=== PATIENT | male | born 1935 | race Caucasian/White ===

== ENCOUNTER 2020-11-29 09:35 | Inpatient (IN) | payer OTHER ==
[2020-11-29] VITALS (29 sets, daily range): BP systolic 87–127; BP diastolic 28–66
[~2020-11-29] VITALS: Ht 175.3 cm; Wt 66.7 kg
[2020-11-29] MEDS ORDERED: SODIUM CHLORIDE 0.9% 1,000 ML IV ONE ×2 (10:00→20:15)
[2020-11-29 10:44] LABS: Hematocrit 31.9 % (41.0-53.0); Mean Corpuscular Hemoglobin 23.6 pg (28.0-32.0); Mean Corpuscular Hgb Conc. 28.3 g/dL (32.0-36.0); Mean Corpuscular Volume 83.5 fL (80.0-100.0); Red Blood Cells 3.82 10^6/uL (4.5-5.90); Red Cell Distribution Width 16.6 % (11.8-14.3); White Blood Cell 11.9 10^3/uL (4.4-10.8)
[2020-11-29 10:58] LABS: Alanine Aminotransferase 14 U/L (16-61); Anion Gap 6 (5-15); Blood Urea Nitrogen 27 mg/dL (7-18); Calcium 9.1 mg/dL (8.5-10.1); Carbon Dioxide 27 mmol/L (21-32); Chloride 106 mmol/L (98-107); Glucose 146 mg/dL (74-106); Potassium 3.8 mmol/L (3.5-5.1); Sodium 139 mmol/L (136-145)
[2020-11-29 11:03] LABS: Alkaline Phosphatase 74 U/L (45-117); Aspartate Aminotransferase 14 U/L (15-37); BUN/Creatinine Ratio 26.7; Basophils % (manual) 0 (0.0-2.0); Bilirubin, Total 0.5 mg/dL (0.2-1.0); Blast Cells 0; Eosinophils % (manual) 0 (0-7); GFR African American 91 mL/min; GFR Non-African American 75 mL/min; Metamyelocytes % 0; Myelocytes % 0; Promyelocytes % 0; Reactive Lymphocytes 0; Total Protein 7.8 g/dL (6.4-8.2)
[2020-11-29 11:37] LABS: Band Neutrophils % (manual) 2; Lymphocytes % (manual) 38 (10.0-50.0); Monocytes % (manual) 24 (0-12)
[2020-11-29] MEDS ORDERED: ACETAMINOPHEN 500 MG TAB PO ONE (15:04)
[2020-11-29] MEDS ORDERED: ACETAMINOPHEN 325 MG TAB PO ONE (15:15)
[2020-11-29 15:33] LABS: Urine Bacteria NONE SEEN /hpf (None Seen); Urine Blood 3+ /uL (Negative); Urine WBC 1250 /hpf (0 - 3)
[2020-11-29 15:39] LABS: Urine Specific Gravity 1.025 (1.001-1.035)
[2020-11-29] MEDS ORDERED: ETOMIDATE (2MG/ML) 20ML VIAL IV ONE ×2 (16:06→20:00)
[2020-11-29] MEDS ORDERED: SUCCINYLCHOLINE CHLORIDE 20 MG/ML 10ML VIAL IV ONE ×2 (16:07→20:00)
[2020-11-29] MEDS ORDERED: MIDAZOLAM DRIP 50 mg/50mL 50 ML IV ONE (16:07)
[2020-11-29] MEDS ORDERED: NOREPINEPHRINE 8 MG/250ML KIT 250 ML IV ONE (16:29)
[2020-11-29] MEDS: NOREPINEPHRINE 8 MG/250ML KIT 250 ML IV SCH ×2 (16:30→21:12)
[2020-11-29] MEDS ORDERED: cefTRIAXone 1GM/50ML D5W 50 ML IV ONE (16:45)
[2020-11-29] MEDS ORDERED: IOHEXOL 300 MG/ML 100ML BOTTLE IJ ONE (16:56)
[2020-11-29] MEDS ORDERED: MORPHINE SULFATE INJECTION 2 MG/ML SYRG IV PRN (17:00)
[2020-11-29] MEDS ORDERED: NITROGLYCERIN 0.4 MG SL TAB SL PRN (17:00)
[2020-11-29] MEDS ORDERED: VANCOMYCIN PER PHARMACY 0 MG IV SCH (17:00)
[2020-11-29] MEDS ORDERED: DEXTROSE (50%) 50ML SYRG IV PRN (17:00)
[2020-11-29] MEDS ORDERED: VANCOMYCIN 1GM/250ML 250 ML IV ONE (17:30)
[2020-11-29] MEDS: MIDAZOLAM DRIP 50 mg/50mL 50 ML IV SCH ×2 (18:45→22:32)
[2020-11-29 19:10] LABS: Lactic Acid w/Reflex 3.6 mmol/L (0.4-2.0)
[2020-11-29] MEDS: PIPERACILLIN-TAZOB 3.375GM 100 ML IV SCH (19:34)
[2020-11-29] MEDS: fentaNYL Drip 2500mCg/250mlNS 250 ML IV SCH (19:40)
[2020-11-29] MEDS: ACCU-CHEK COMFORT CURVE STRIP VI SCH (19:55)
[2020-11-29] MEDS ORDERED: MIDAZOLAM DRIP 50 mg/50mL 50 ML IV SCH (20:00)
[2020-11-29] MEDS: InsuLIN REG 1unit/0.01ml Soln (100units/ml) SC SCH (20:00)
[2020-11-29] MEDS ORDERED: SODIUM CHLORIDE 0.9% 2,000 ML IV ONE (20:00)
[2020-11-29] MEDS ORDERED: VANCOMYCIN 1GM/250ML 250 ML IV SCH (20:00)
[2020-11-29] MEDS: LACTATED RINGER'S 1,000 ML IV SCH (20:36)
[2020-11-29] MEDS: VASOPRESSIN 50 UNITS in D5W 5% 247.5 ML IV SCH (20:55)
[2020-11-29] MEDS ORDERED: ACETAMINOPHEN 325 MG TAB PO PRN (21:15)
[2020-11-29] MEDS: HYDROCORTISONE SOD SUCC 100 MG/2ML INJ VIAL IV SCH (22:29)
[2020-11-29 22:49] LABS: Hemoglobin 9.2 g/dL (13.5-17.5); Mean Corpuscular Hemoglobin 24.8 pg (28.0-32.0); Mean Corpuscular Hgb Conc. 28.7 g/dL (32.0-36.0); Mean Corpuscular Volume 86.4 fL (80.0-100.0); Red Cell Distribution Width 17.5 % (11.8-14.3); White Blood Cell 21.4 10^3/uL (4.4-10.8)
[2020-11-29 22:52] LABS: Basophils % (manual) 0 (0.0-2.0); Blast Cells 0; Eosinophils % (manual) 0 (0-7); Myelocytes % 0; Promyelocytes % 0
[2020-11-29 23:06] LABS: INR 1.34 (0.9-1.15)
[2020-11-29 23:38] LABS: Band Neutrophils % (manual) 16; Lymphocytes % (manual) 4 (10.0-50.0); Metamyelocytes % 5; Monocytes % (manual) 25 (0-12); Reactive Lymphocytes 1
[2020-11-30] VITALS (107 sets, daily range): BP systolic 94–130; BP diastolic 43–72
[2020-11-30] MEDS: ACCU-CHEK COMFORT CURVE STRIP VI SCH ×4 (00:15→18:27)
[2020-11-30] MEDS: InsuLIN REG 1unit/0.01ml Soln (100units/ml) SC SCH ×5 (00:23→23:26)
[2020-11-30] MEDS: PIPERACILLIN-TAZOB 3.375GM 100 ML IV SCH ×5 (00:24→23:27)
[2020-11-30] MEDS: NOREPINEPHRINE 8 MG/250ML KIT 250 ML IV SCH ×3 (01:48→15:32)
[2020-11-30] MEDS: MIDAZOLAM DRIP 50 mg/50mL 50 ML IV SCH ×3 (03:08→13:37)
[2020-11-30] MEDS: LACTATED RINGER'S 1,000 ML IV SCH ×4 (04:09→20:47)
[2020-11-30 04:15] LABS: INR 1.34 (0.9-1.15); Partial Thromboplastin Time 36.1 sec (23.0-31.2)
[2020-11-30 04:17] LABS: Hematocrit 29.1 % (41.0-53.0); Hemoglobin 8.1 g/dL (13.5-17.5); Mean Corpuscular Hemoglobin 24.1 pg (28.0-32.0); Mean Corpuscular Hgb Conc. 27.9 g/dL (32.0-36.0); Mean Corpuscular Volume 86.3 fL (80.0-100.0); Red Blood Cells 3.37 10^6/uL (4.5-5.90); Red Cell Distribution Width 17.4 % (11.8-14.3); White Blood Cell 24.9 10^3/uL (4.4-10.8)
[2020-11-30 04:20] LABS: Albumin 2.3 g/dL (3.4-5.0); Calcium 7.1 mg/dL (8.5-10.1); Potassium 3.9 mmol/L (3.5-5.1)
[2020-11-30 04:23] LABS: Basophils % (manual) 0 (0.0-2.0); Blast Cells 0; Eosinophils % (manual) 0 (0-7); Metamyelocytes % 0; Promyelocytes % 0; Reactive Lymphocytes 0
[2020-11-30 04:24] LABS: BUN/Creatinine Ratio 20.3; Bilirubin, Total 0.4 mg/dL (0.2-1.0)
[2020-11-30 06:06] LABS: Band Neutrophils % (manual) 15; Lymphocytes % (manual) 7 (10.0-50.0); Monocytes % (manual) 13 (0-12); Myelocytes % 3
[2020-11-30] MEDS: PANTOPRAZOLE 40 MG/10 ML VIAL INJ IV SCH (10:11)
[2020-11-30] MEDS: HYDROCORTISONE SOD SUCC 100 MG/2ML INJ VIAL IV SCH (10:11)
[2020-11-30] MEDS ORDERED: METF-370 PO (11:07)
[2020-11-30] MEDS ORDERED: OMEP20TA PO (11:07)
[2020-11-30] MEDS ORDERED: Glucerna 1.2 Cal 1Liter BOTTLE GT SCH (14:15)
[2020-11-30] MEDS: fentaNYL Drip 2500mCg/250mlNS 250 ML IV SCH (17:00)
[2020-11-30] MEDS: VASOPRESSIN 50 UNITS in D5W 5% 247.5 ML IV SCH (17:00)
[2020-12-01] VITALS (106 sets, daily range): BP systolic 83–144; BP diastolic 48–73
[2020-12-01] MEDS: MIDAZOLAM DRIP 50 mg/50mL 50 ML IV SCH ×3 (02:16→11:20)
[2020-12-01 04:27] LABS: Potassium 3.5 mmol/L (3.5-5.1)
[2020-12-01 04:34] LABS: BUN/Creatinine Ratio 20.3; Calcium 7.4 mg/dL (8.5-10.1)
[2020-12-01 04:57] LABS: Hematocrit 25.7 % (41.0-53.0); Hemoglobin 7.4 g/dL (13.5-17.5); Mean Corpuscular Hemoglobin 23.7 pg (28.0-32.0); Mean Corpuscular Hgb Conc. 28.8 g/dL (32.0-36.0); Mean Corpuscular Volume 82.5 fL (80.0-100.0); Red Blood Cells 3.11 10^6/uL (4.5-5.90); Red Cell Distribution Width 17.8 % (11.8-14.3)
[2020-12-01 04:59] LABS: Basophils % (manual) 0 (0.0-2.0); Blast Cells 0; Eosinophils % (manual) 0 (0-7); Metamyelocytes % 0; Promyelocytes % 0; Reactive Lymphocytes 0
[2020-12-01 05:42] LABS: Band Neutrophils % (manual) 8; Monocytes % (manual) 18 (0-12)
[2020-12-01 05:43] LABS: Lymphocytes % (manual) 10 (10.0-50.0); Myelocytes % 2
[2020-12-01] MEDS: InsuLIN REG 1unit/0.01ml Soln (100units/ml) SC SCH ×4 (05:50→23:53)
[2020-12-01] MEDS: PIPERACILLIN-TAZOB 3.375GM 100 ML IV SCH ×4 (05:51→23:47)
[2020-12-01] MEDS: ACCU-CHEK COMFORT CURVE STRIP VI SCH ×5 (05:51→23:47)
[2020-12-01] MEDS: fentaNYL Drip 2500mCg/250mlNS 250 ML IV SCH (06:19)
[2020-12-01] MEDS: LACTATED RINGER'S 1,000 ML IV SCH ×2 (07:32→17:25)
[2020-12-01] MEDS: PANTOPRAZOLE 40 MG/10 ML VIAL INJ IV SCH (09:57)
[2020-12-01] MEDS: NOREPINEPHRINE 8 MG/250ML KIT 250 ML IV SCH (09:58)
[2020-12-01] MEDS: VASOPRESSIN 50 UNITS in D5W 5% 247.5 ML IV SCH (17:00)
[2020-12-02] VITALS (108 sets, daily range): BP systolic 97–156; BP diastolic 47–87
[2020-12-02] MEDS: LACTATED RINGER'S 1,000 ML IV SCH ×2 (02:39→12:45)
[2020-12-02 04:13] LABS: Hemoglobin 7.2 g/dL (13.5-17.5); Mean Corpuscular Volume 81.5 fL (80.0-100.0); White Blood Cell 9.3 10^3/uL (4.4-10.8)
[2020-12-02 04:15] LABS: Hematocrit 24.2 % (41.0-53.0); Mean Corpuscular Hemoglobin 24.1 pg (28.0-32.0); Mean Corpuscular Hgb Conc. 29.6 g/dL (32.0-36.0); Red Blood Cells 2.97 10^6/uL (4.5-5.90); Red Cell Distribution Width 17.5 % (11.8-14.3)
[2020-12-02 04:17] LABS: Calcium 7.7 mg/dL (8.5-10.1)
[2020-12-02 04:19] LABS: BUN/Creatinine Ratio 18.5
[2020-12-02 04:23] LABS: Basophils % (manual) 0 (0.0-2.0); Blast Cells 0; Eosinophils % (manual) 0 (0-7); Myelocytes % 0; Promyelocytes % 0; Reactive Lymphocytes 0
[2020-12-02 04:50] LABS: Band Neutrophils % (manual) 16; Lymphocytes % (manual) 26 (10.0-50.0); Metamyelocytes % 2; Monocytes % (manual) 15 (0-12)
[2020-12-02] MEDS: PIPERACILLIN-TAZOB 3.375GM 100 ML IV SCH ×4 (05:42→23:38)
[2020-12-02 05:44] LABS: Magnesium 1.7 mg/dL (1.6-2.6)
[2020-12-02] MEDS: POTASSIUM CHL 20MEQ/100ML 100 ML IV SCH ×4 (05:44→09:58)
[2020-12-02] MEDS: ACCU-CHEK COMFORT CURVE STRIP VI SCH ×4 (05:48→23:38)
[2020-12-02] MEDS: InsuLIN REG 1unit/0.01ml Soln (100units/ml) SC SCH ×4 (05:48→23:38)
[2020-12-02] MEDS ORDERED: MAGNESIUM SULFATE 1GM/100ML 100 ML IV ONE (06:15)
[2020-12-02] MEDS ORDERED: EPOE20005 IJ (08:59)
[2020-12-02] MEDS: PANTOPRAZOLE 40 MG/10 ML VIAL INJ IV SCH (09:50)
[2020-12-02] MEDS: NOREPINEPHRINE 8 MG/250ML KIT 250 ML IV SCH (16:25)
[2020-12-02] MEDS: VASOPRESSIN 50 UNITS in D5W 5% 247.5 ML IV SCH (16:25)
[2020-12-02] MEDS: MIDAZOLAM DRIP 50 mg/50mL 50 ML IV SCH (16:25)
[2020-12-02] MEDS: fentaNYL Drip 2500mCg/250mlNS 250 ML IV SCH (16:25)
[2020-12-03] VITALS (104 sets, daily range): BP systolic 114–161; BP diastolic 66–97
[2020-12-03] MEDS: LACTATED RINGER'S 1,000 ML IV SCH ×2 (03:15→15:25)
[2020-12-03 03:43] LABS: Hemoglobin 8.9 g/dL (13.5-17.5); Red Cell Distribution Width 17.3 % (11.8-14.3)
[2020-12-03 03:45] LABS: Mean Corpuscular Hemoglobin 25.3 pg (28.0-32.0); Mean Corpuscular Hgb Conc. 30.7 g/dL (32.0-36.0); Mean Corpuscular Volume 82.4 fL (80.0-100.0); Red Blood Cells 3.52 10^6/uL (4.5-5.90); White Blood Cell 9.3 10^3/uL (4.4-10.8)
[2020-12-03 03:57] LABS: Basophils % (manual) 0 (0.0-2.0); Eosinophils % (manual) 0 (0-7); Metamyelocytes % 0; Myelocytes % 0; Promyelocytes % 0; Reactive Lymphocytes 0
[2020-12-03 04:03] LABS: BUN/Creatinine Ratio 16.3; Calcium 7.7 mg/dL (8.5-10.1); Potassium 3.7 mmol/L (3.5-5.1)
[2020-12-03 04:59] LABS: Band Neutrophils % (manual) 10; Blast Cells 3; Lymphocytes % (manual) 30 (10.0-50.0); Monocytes % (manual) 19 (0-12)
[2020-12-03] MEDS: ACCU-CHEK COMFORT CURVE STRIP VI SCH ×3 (05:44→18:00)
[2020-12-03] MEDS: PIPERACILLIN-TAZOB 3.375GM 100 ML IV SCH ×3 (05:44→18:51)
[2020-12-03] MEDS: InsuLIN REG 1unit/0.01ml Soln (100units/ml) SC SCH ×3 (05:52→18:00)
[2020-12-03] MEDS: PANTOPRAZOLE 40 MG/10 ML VIAL INJ IV SCH (11:07)
[2020-12-03] MEDS: NOREPINEPHRINE 8 MG/250ML KIT 250 ML IV SCH (17:00)
[2020-12-03] MEDS: VASOPRESSIN 50 UNITS in D5W 5% 247.5 ML IV SCH (17:00)
[2020-12-03] MEDS: MIDAZOLAM DRIP 50 mg/50mL 50 ML IV SCH (17:00)
[2020-12-03] MEDS: fentaNYL Drip 2500mCg/250mlNS 250 ML IV SCH (17:00)
[2020-12-04] VITALS (95 sets, daily range): BP systolic 101–159; BP diastolic 62–90
[2020-12-04] MEDS: ACCU-CHEK COMFORT CURVE STRIP VI SCH ×4 (00:08→18:11)
[2020-12-04] MEDS: InsuLIN REG 1unit/0.01ml Soln (100units/ml) SC SCH ×4 (00:09→18:00)
[2020-12-04] MEDS: PIPERACILLIN-TAZOB 3.375GM 100 ML IV SCH ×4 (00:11→17:52)
[2020-12-04 05:14] LABS: Basophils # (auto) 0 10 ^3/uL (0-0.2); Eosinophils # (auto) 0.1 10 ^3/uL (0-0.8); Mean Corpuscular Hemoglobin 25.6 pg (28.0-32.0); Monocytes # (auto) 1.1 10 ^3/uL (0-1.3); Nucleated Red Blood Cells % 0.2 %; White Blood Cell 7.6 10^3/uL (4.4-10.8)
[2020-12-04 05:17] LABS: Basophils % (auto) 0.4 % (0.0-2.0); Eosinophils % (auto) 1.1 % (0.0-7.0); Hematocrit 28.2 % (41.0-53.0); Hemoglobin 8.7 g/dL (13.5-17.5); Lymphocytes # (auto) 3.1 10 ^3/uL (0.4-5.4); Lymphocytes % (auto) 41.4 % (10.0-50.0); Mean Corpuscular Volume 82.7 fL (80.0-100.0); Monocytes % (auto) 14.4 % (0.0-12.0); Neutrophils # (auto) 3.2 10 ^3/uL (1.6-8.6); Neutrophils % (auto) 42.7 % (37.0-80.0); Red Cell Distribution Width 17.3 % (11.8-14.3)
[2020-12-04] MEDS: LACTATED RINGER'S 1,000 ML IV SCH (05:28)
[2020-12-04 05:31] LABS: BUN/Creatinine Ratio 15.3; Calcium 7.6 mg/dL (8.5-10.1); Potassium 3.3 mmol/L (3.5-5.1)
[2020-12-04] MEDS ORDERED: POTASSIUM CHL 20MEQ/100ML 100 ML IV ONE (06:00)
[2020-12-04] MEDS: PANTOPRAZOLE 40 MG/10 ML VIAL INJ IV SCH (09:50)
[2020-12-04] MEDS: NOREPINEPHRINE 8 MG/250ML KIT 250 ML IV SCH (17:00)
[2020-12-04] MEDS: fentaNYL Drip 2500mCg/250mlNS 250 ML IV SCH (17:00)
[2020-12-04] MEDS: VASOPRESSIN 50 UNITS in D5W 5% 247.5 ML IV SCH (17:00)
[2020-12-04] MEDS: MIDAZOLAM DRIP 50 mg/50mL 50 ML IV SCH (17:00)
[2020-12-05] VITALS (81 sets, daily range): BP systolic 126–157; BP diastolic 71–94
[2020-12-05] MEDS: PIPERACILLIN-TAZOB 3.375GM 100 ML IV SCH ×5 (00:39→23:56)
[2020-12-05] MEDS: ACCU-CHEK COMFORT CURVE STRIP VI SCH ×5 (00:40→23:56)
[2020-12-05] MEDS: InsuLIN REG 1unit/0.01ml Soln (100units/ml) SC SCH ×5 (00:41→23:56)
[2020-12-05 06:52] LABS: Basophils # (auto) 0.1 10 ^3/uL (0-0.2); Eosinophils # (auto) 0.1 10 ^3/uL (0-0.8); Nucleated Red Blood Cells % 0.2 %
[2020-12-05 06:54] LABS: Basophils % (auto) 1.4 % (0.0-2.0); Eosinophils % (auto) 1.2 % (0.0-7.0); Hematocrit 29.5 % (41.0-53.0); Lymphocytes # (auto) 2.9 10 ^3/uL (0.4-5.4); Lymphocytes % (auto) 45.4 % (10.0-50.0); Mean Corpuscular Hemoglobin 25.3 pg (28.0-32.0); Mean Corpuscular Hgb Conc. 30.5 g/dL (32.0-36.0); Mean Corpuscular Volume 82.8 fL (80.0-100.0); Monocytes # (auto) 1.1 10 ^3/uL (0-1.3); Monocytes % (auto) 17.7 % (0.0-12.0); Neutrophils # (auto) 2.2 10 ^3/uL (1.6-8.6); Neutrophils % (auto) 34.3 % (37.0-80.0); Red Blood Cells 3.56 10^6/uL (4.5-5.90); White Blood Cell 6.4 10^3/uL (4.4-10.8)
[2020-12-05 07:01] LABS: BUN/Creatinine Ratio 13.3; Calcium 8.1 mg/dL (8.5-10.1); Potassium 3.7 mmol/L (3.5-5.1)
[2020-12-05] MEDS: PANTOPRAZOLE 40 MG/10 ML VIAL INJ IV SCH (10:00)
[2020-12-06] VITALS (30 sets, daily range): BP systolic 103–150; BP diastolic 48–87
[2020-12-06 04:03] LABS: Basophils # (auto) 0.1 10 ^3/uL (0-0.2); Basophils % (auto) 0.7 % (0.0-2.0); Eosinophils # (auto) 0.1 10 ^3/uL (0-0.8); Eosinophils % (auto) 0.7 % (0.0-7.0); Hematocrit 29.9 % (41.0-53.0); Lymphocytes # (auto) 3.4 10 ^3/uL (0.4-5.4); Lymphocytes % (auto) 39.7 % (10.0-50.0); Mean Corpuscular Hemoglobin 24.9 pg (28.0-32.0); Mean Corpuscular Volume 82.9 fL (80.0-100.0); Monocytes # (auto) 1.5 10 ^3/uL (0-1.3); Monocytes % (auto) 17.9 % (0.0-12.0); Neutrophils # (auto) 3.5 10 ^3/uL (1.6-8.6); Nucleated Red Blood Cells % 0.1 %; Red Blood Cells 3.61 10^6/uL (4.5-5.90); Red Cell Distribution Width 17.3 % (11.8-14.3); White Blood Cell 8.7 10^3/uL (4.4-10.8)
[2020-12-06 04:18] LABS: Calcium 8.1 mg/dL (8.5-10.1); Potassium 3.5 mmol/L (3.5-5.1)
[2020-12-06 04:20] LABS: BUN/Creatinine Ratio 12.2
[2020-12-06] MEDS: PIPERACILLIN-TAZOB 3.375GM 100 ML IV SCH (05:24)
[2020-12-06] MEDS: InsuLIN REG 1unit/0.01ml Soln (100units/ml) SC SCH ×3 (05:28→18:00)
[2020-12-06] MEDS: ACCU-CHEK COMFORT CURVE STRIP VI SCH ×3 (05:29→18:00)
[2020-12-06] MEDS: levoFLOXacin 500MG 100 ML IV SCH (12:35)
[2020-12-07] VITALS (19 sets, daily range): BP systolic 131–157; BP diastolic 68–79
[2020-12-07] MEDS: InsuLIN REG 1unit/0.01ml Soln (100units/ml) SC SCH ×4 (05:40→18:00)
[2020-12-07] MEDS: ACCU-CHEK COMFORT CURVE STRIP VI SCH ×4 (05:46→18:19)
[2020-12-07 09:20] LABS: Basophils # (auto) 0.1 10 ^3/uL (0-0.2); Eosinophils # (auto) 0.1 10 ^3/uL (0-0.8); Hematocrit 28.9 % (41.0-53.0); Hemoglobin 8.8 g/dL (13.5-17.5); White Blood Cell 8.6 10^3/uL (4.4-10.8)
[2020-12-07 09:21] LABS: Basophils % (auto) 1.1 % (0.0-2.0); Eosinophils % (auto) 0.8 % (0.0-7.0); Lymphocytes # (auto) 3.3 10 ^3/uL (0.4-5.4); Lymphocytes % (auto) 38.1 % (10.0-50.0); Mean Corpuscular Hemoglobin 25.3 pg (28.0-32.0); Mean Corpuscular Hgb Conc. 30.4 g/dL (32.0-36.0); Mean Corpuscular Volume 83.2 fL (80.0-100.0); Monocytes # (auto) 1.5 10 ^3/uL (0-1.3); Monocytes % (auto) 17.7 % (0.0-12.0); Neutrophils # (auto) 3.6 10 ^3/uL (1.6-8.6); Neutrophils % (auto) 42.3 % (37.0-80.0); Red Blood Cells 3.47 10^6/uL (4.5-5.90)
[2020-12-07 09:34] LABS: BUN/Creatinine Ratio 13.7; Calcium 8.1 mg/dL (8.5-10.1); Potassium 3.3 mmol/L (3.5-5.1)
[2020-12-07] MEDS: levoFLOXacin 500MG 100 ML IV SCH (10:04)
[2020-12-07] MEDS: D5W/SOD CHL 0.45%/KCL 40MEQ 1,000 ML IV SCH (13:05)
[2020-12-08] MEDS: ACCU-CHEK COMFORT CURVE STRIP VI SCH ×5 (00:05→23:55)
[2020-12-08] MEDS: InsuLIN REG 1unit/0.01ml Soln (100units/ml) SC SCH ×5 (00:06→23:56)
[2020-12-08] MEDS: D5W/SOD CHL 0.45%/KCL 40MEQ 1,000 ML IV SCH ×2 (02:39→14:40)
[2020-12-08 05:00] VITALS: BP 148/80
[2020-12-08 05:58] LABS: BUN/Creatinine Ratio 10.7; Potassium 3.5 mmol/L (3.5-5.1)
[2020-12-08 06:28] LABS: Hematocrit 32.2 % (41.0-53.0); Hemoglobin 9.4 g/dL (13.5-17.5); Mean Corpuscular Hemoglobin 25.3 pg (28.0-32.0); Mean Corpuscular Hgb Conc. 29.3 g/dL (32.0-36.0); Mean Corpuscular Volume 86.1 fL (80.0-100.0); Red Blood Cells 3.74 10^6/uL (4.5-5.90); Red Cell Distribution Width 17.4 % (11.8-14.3); White Blood Cell 11.3 10^3/uL (4.4-10.8)
[2020-12-08 06:32] LABS: Basophils % (manual) 0 (0.0-2.0); Blast Cells 0; Metamyelocytes % 0; Myelocytes % 0; Promyelocytes % 0; Reactive Lymphocytes 0
[2020-12-08 07:54] LABS: Band Neutrophils % (manual) 1; Eosinophils % (manual) 4 (0-7); Lymphocytes % (manual) 41 (10.0-50.0); Monocytes % (manual) 38 (0-12)
[2020-12-08 09:19] VITALS: BP 146/77
[2020-12-08] MEDS: levoFLOXacin 500MG 100 ML IV SCH (11:17)
[2020-12-08 12:37] VITALS: BP 122/70
[2020-12-08 17:06] VITALS: BP 132/73
[2020-12-08 20:00] VITALS: BP 130/74
[2020-12-08] MEDS ORDERED: D5W/SOD CHL 0.45%/KCL 40MEQ 1,000 ML IV SCH (21:30)
[2020-12-09 05:05] VITALS: BP 135/74
[2020-12-09] MEDS: ACCU-CHEK COMFORT CURVE STRIP VI SCH ×4 (05:49→23:48)
[2020-12-09] MEDS: InsuLIN REG 1unit/0.01ml Soln (100units/ml) SC SCH ×4 (05:51→23:48)
[2020-12-09 06:10] LABS: Red Cell Distribution Width 17.4 % (11.8-14.3); White Blood Cell 7.6 10^3/uL (4.4-10.8)
[2020-12-09 06:13] LABS: Hematocrit 29.5 % (41.0-53.0); Hemoglobin 9.1 g/dL (13.5-17.5); Mean Corpuscular Hemoglobin 25.5 pg (28.0-32.0); Mean Corpuscular Volume 82.1 fL (80.0-100.0); Red Blood Cells 3.59 10^6/uL (4.5-5.90)
[2020-12-09 06:20] LABS: Band Neutrophils % (manual) 0; Blast Cells 0; Myelocytes % 0; Promyelocytes % 0; Reactive Lymphocytes 0
[2020-12-09 06:23] LABS: Potassium 4.1 mmol/L (3.5-5.1)
[2020-12-09 06:31] LABS: Calcium 8.5 mg/dL (8.5-10.1)
[2020-12-09 07:17] LABS: Basophils % (manual) 1 (0.0-2.0); Eosinophils % (manual) 2 (0-7); Lymphocytes % (manual) 52 (10.0-50.0); Metamyelocytes % 2; Monocytes % (manual) 22 (0-12)
[2020-12-09 09:00] VITALS: BP 149/85
[2020-12-09] MEDS: levoFLOXacin 500MG 100 ML IV SCH (10:30)
[2020-12-09] MEDS: Glucerna Carbsteady SHAKE Vanilla 8oz PO SCH ×2 (11:48→18:03)
[2020-12-09 13:00] VITALS: BP 131/75
[2020-12-09 17:00] VITALS: BP 123/66
[2020-12-09] MEDS: TAMSULOSIN HYDROCHLORIDE 0.4 MG CAP PO SCH (18:03)
[2020-12-09 23:14] VITALS: BP 115/61
[2020-12-10] MEDS ORDERED: ACETAMINOPHEN 650 MG RECT SUPP PR PRN (03:30)
[2020-12-10 05:25] VITALS: BP 121/66
[2020-12-10] MEDS: ACCU-CHEK COMFORT CURVE STRIP VI SCH ×3 (05:49→17:47)
[2020-12-10] MEDS: InsuLIN REG 1unit/0.01ml Soln (100units/ml) SC SCH ×3 (05:51→17:48)
[2020-12-10] MEDS: Glucerna Carbsteady SHAKE Vanilla 8oz PO SCH ×3 (08:16→17:47)
[2020-12-10 09:00] VITALS: BP 111/67
[2020-12-10] MEDS: levoFLOXacin 500MG 100 ML IV SCH (10:08)
[2020-12-10 13:26] VITALS: BP 124/65
[2020-12-10 17:00] VITALS: BP 105/53
[2020-12-10] MEDS: TAMSULOSIN HYDROCHLORIDE 0.4 MG CAP PO SCH (17:47)
[2020-12-10 22:00] VITALS: BP 122/63
[2020-12-11] MEDS: InsuLIN REG 1unit/0.01ml Soln (100units/ml) SC SCH ×4 (00:29→17:59)
[2020-12-11 05:00] VITALS: BP 125/69
[2020-12-11 05:47] LABS: Hematocrit 27.3 % (41.0-53.0); Hemoglobin 8.4 g/dL (13.5-17.5); Mean Corpuscular Hemoglobin 25.3 pg (28.0-32.0); Mean Corpuscular Hgb Conc. 30.8 g/dL (32.0-36.0); Mean Corpuscular Volume 81.9 fL (80.0-100.0); Red Blood Cells 3.34 10^6/uL (4.5-5.90); Red Cell Distribution Width 17.1 % (11.8-14.3); White Blood Cell 13.1 10^3/uL (4.4-10.8)
[2020-12-11 05:53] LABS: Blast Cells 0; Eosinophils % (manual) 0 (0-7); Myelocytes % 0; Reactive Lymphocytes 0
[2020-12-11] MEDS: ACCU-CHEK COMFORT CURVE STRIP VI SCH ×4 (06:00→17:59)
[2020-12-11 06:03] LABS: Calcium 8.6 mg/dL (8.5-10.1); Potassium 4.4 mmol/L (3.5-5.1)
[2020-12-11 06:06] LABS: BUN/Creatinine Ratio 14.9
[2020-12-11 06:15] LABS: Band Neutrophils % (manual) 1; Lymphocytes % (manual) 29 (10.0-50.0)
[2020-12-11 06:16] LABS: Basophils % (manual) 3 (0.0-2.0); Metamyelocytes % 3; Monocytes % (manual) 21 (0-12); Promyelocytes % 1
[2020-12-11 07:26] LABS: Urine Bacteria FEW /hpf (None Seen); Urine Blood TRACE /uL (Negative); Urine Mucus FEW (None Seen); Urine Specific Gravity 1.014 (1.001-1.035); Urine WBC 1 /hpf (0 - 3)
[2020-12-11 09:00] VITALS: BP 124/71
[2020-12-11] MEDS: Glucerna Carbsteady SHAKE Vanilla 8oz PO SCH ×3 (09:10→17:59)
[2020-12-11] MEDS: levoFLOXacin 500MG 100 ML IV SCH (09:36)
[2020-12-11 10:30] VITALS: BP 124/71
[2020-12-11 13:00] VITALS: BP 127/69
[2020-12-11 17:10] VITALS: BP 117/64
[2020-12-11] MEDS: TAMSULOSIN HYDROCHLORIDE 0.4 MG CAP PO SCH (17:59)
== END 2020-12-11 18:55 | disposition hospice, home (50) | DRG 870 ==
LOC: ER 09:35 → EDBD 09:35 → ICU WEST 16:49 → TELE-CENTR 12-07 17:43
PROVIDERS: ADMIT Nurse Practitioner Acute Care; ATTEND Internal Medicine
PROC: 5A1955Z Respiratory Ventilation, Greater than 96 Consecutive Hours (ICD-10-PCS; principal; 2020-11-29)
PROC: 0BH17EZ Insertion of Endotracheal Airway into Trachea, Via Natural or Artificial Opening (ICD-10-PCS; 2020-11-29)
PROC: 4A143B0 Monitoring of Venous Pressure, Central, Percutaneous Approach (ICD-10-PCS; 2020-11-29)
PROC: 02HV33Z Insertion of Infusion Device into Superior Vena Cava, Percutaneous Approach (ICD-10-PCS; 2020-11-29)
PROC: 30233N1 Transfusion of Nonautologous Red Blood Cells into Peripheral Vein, Percutaneous Approach (ICD-10-PCS; 2020-12-02)
PROC: 05HD33Z Insertion of Infusion Device into Right Cephalic Vein, Percutaneous Approach (ICD-10-PCS; 2020-12-07)
PROC: B54MZZA Ultrasonography of Right Upper Extremity Veins, Guidance (ICD-10-PCS; 2020-12-07)
DX: A41.9 Sepsis, unspecified organism (principal); J96.01 Acute respiratory failure with hypoxia; R65.21 Severe sepsis with septic shock; G93.41 Metabolic encephalopathy; N17.0 Acute kidney failure with tubular necrosis; J15.211 Pneumonia due to Methicillin susceptible Staphylococcus aureus; E44.0 Moderate protein-calorie malnutrition; D64.9 Anemia, unspecified; F03.90 Unspecified dementia, unspecified severity, without behavioral disturbance, psychotic disturbance, mood disturbance, and anxiety; I80.8 Phlebitis and thrombophlebitis of other sites; K57.30 Diverticulosis of large intestine without perforation or abscess without bleeding; N40.0 Benign prostatic hyperplasia without lower urinary tract symptoms; Z66 Do not resuscitate; E11.9 Type 2 diabetes mellitus without complications; Z20.822 Contact with and (suspected) exposure to COVID-19; B96.4 Proteus (mirabilis) (morganii) as the cause of diseases classified elsewhere; I10 Essential (primary) hypertension; N30.91 Cystitis, unspecified with hematuria; K21.9 Gastro-esophageal reflux disease without esophagitis; Z68.23 Body mass index [BMI] 23.0-23.9, adult
CPT/HCPCS: 31500; 36415; 36556; 36600; 70450; 71045; 71250; 74176; 74177; 80048; 80053; 81001; 82805; 82962; 83036; 83605; 83735; 84075; 84443; 84484; 85007; 85025; 85027; 85610; 85652; 85730; 86141; 86850; 86900; 86901; 86920; 87040; 87070; 87077; 87081; 87086; 87088; 87186; 87205; 87426; 87493; 92507; 92610; 93005; 94002; 94003; 96365; C9113; G0378; J0330; J0696; J1815; J1956; J2250; J2543; J3480; J7060